=== PATIENT | male | born 1990 | race Caucasian/White ===

== ENCOUNTER 2020-04-14 14:29 | Emergency (ER) | payer OTHER ==
[~2020-04-14] VITALS: Ht 170.2 cm; Wt 69.9 kg
[2020-04-14 14:29] VITALS: BP 139/71
[~2020-04-14 14:29] MED LIST: /CIPR75TA OR; FLAG500T OR; ONDA-1 OR
[2020-04-14] MEDS ORDERED: MAGN100T PO (14:36)
--- NOTE | 2020-04-14 15:30 | REP ---
INDICATION: constipation COMPARISON: None. TECHNIQUE: Supine view of the abdomen and pelvis. FINDINGS: Bowel gas pattern is nonspecific and without obstruction or perforation. No organomegaly. No abnormal calcifications. Skeletal structures intact. IMPRESSION: Normal abdominal radiograph. No evidence for fecal stasis or constipation. <Electronically signed by Agustín Lagunas > 04/14/20 1528
== END 2020-04-14 15:46 | disposition home or self-care (01) ==
LOC: M ED 14:29
DX: K59.00 Constipation, unspecified (principal)